=== PATIENT | female | born 1990 | race Caucasian/White ===

== ENCOUNTER 2018-11-30 08:13 | Day surgery (SDC) | payer OTHER ==
[~2018-11-30 08:13] MED LIST: CEFAZOLIN 2 GM/50 ML (PMX) 50 ML IVPB
[2018-11-30] MEDS: SOD CHLORIDE 0.9% 1,000 ML IV (09:25)
[2018-11-30] MEDS ORDERED: LIDOCAINE 2% (SDV) 5 ML INJ (09:40)
[2018-11-30] MEDS ORDERED: MIDAZOLAM 1 MG/ML 2 ML INJ (09:40)
[2018-11-30] MEDS ORDERED: PROPOFOL 20 ML (09:40)
[2018-11-30] MEDS ORDERED: CEFAZOLIN 1 GM INJ (09:40)
[2018-11-30] MEDS ORDERED: FENTAnyl 50 MCG/ML VIAL (09:40)
[2018-11-30] MEDS ORDERED: SUCCINYLCHOLINE CHLORIDE 100 MG/5 ML SYG IV ×2 (09:40→11:45)
[2018-11-30] MEDS ORDERED: OXYCODONE/ACETAMINOPHEN (5/325) TAB PO ×2 (10:30)
[2018-11-30] MEDS ORDERED: ACETAMINOPHEN 1000MG/100ML IV 100 ML IVPB (10:30)
[2018-11-30] MEDS ORDERED: MEPERIDINE 25 MG INJ IV (10:30)
[2018-11-30] MEDS ORDERED: FENTAnyl 50 MCG/ML VIAL IV ×3 (10:30)
[2018-11-30] MEDS: BACITRACIN/POLYMYXIN 28.35 GM OINT TOP (11:41)
[2018-11-30] MEDS: LIDOCAINE 0.5% (SDV) 50 ML INJ (11:42)
[2018-11-30] MEDS: BUPIVACAINE 0.5% (SDV) 30 ML INJ (11:42)
[2018-11-30] MEDS ORDERED: LACTATED RINGER'S 1,000 ML IV (11:57)
[2018-11-30] MEDS: ONDANSETRON 4 MG INJ IV (13:11)
== END 2018-11-30 13:25 | disposition home or self-care (01) ==
LOC: SDS 08:13
DX: L72.0 Epidermal cyst (principal)
CPT/HCPCS: 11422; 88307